=== PATIENT | male | born 1930 | race Caucasian/White ===

== ENCOUNTER 2018-07-20 03:10 | Inpatient (IN) | payer MEDICARE ==
[2018-07-20] MEDS: SOD CHLORIDE 0.9% 1,000 ML IV (03:40)
[2018-07-20] MEDS: FAMOTIDINE 20 MG INJ IV (03:40)
[2018-07-20 03:44] LABS: ADD MAN DIFF? NO
[2018-07-20 04:03] LABS: ALANINE AMINOTRANSFERASE 20 IU/L (13-69); ALBUMIN 3.8 g/dl (3.3-4.9); ALBUMIN/GLOBULIN RATIO 0.97; ALKALINE PHOSPHATASE 91 IU/L (42-121); ANION GAP 15 (8-16); ASPARTATE AMINO TRANSFERASE 23 IU/L (15-46); BILIRUBIN,INDIRECT 0.2 mg/dl (0-1.1); BILIRUBIN,TOTAL 0.2 mg/dl (0.2-1.3); BLOOD UREA NITROGEN 29 mg/dl (7-20); CALCIUM 8.9 mg/dl (8.4-10.2); CARBON DIOXIDE 24 mmol/L (21-31); CHLORIDE 107 mmol/L (97-110); CREATININE 0.75 mg/dl (0.61-1.24); GLUCOSE 143 mg/dl (70-220); POTASSIUM 4.7 mmol/L (3.5-5.1); SODIUM 141 mmol/L (135-144); TOTAL PROTEIN 7.7 g/dl (6.1-8.1)
[2018-07-20 04:05] LABS: BASOPHILS % 0.3 % (0.0-2.0); EOSINOPHILS # 0.4 10^3/ul (0.0-0.5); EOSINOPHILS % 3.4 % (0.0-7.0); HEMATOCRIT 35.6 % (42.0-52.0); HEMOGLOBIN 11.3 g/dl (14.0-18.0); LYMPHOCYTES # 0.7 10^3/ul (0.8-2.9); MEAN CORPUSCULAR HEMOGLOBIN 26.5 pg (29.0-33.0); MEAN CORPUSCULAR HGB CONC 31.7 g/dl (32.0-37.0); MEAN CORPUSCULAR VOLUME 83.4 fl (82.0-101.0); MEAN PLATELET VOLUME 9.4 fl (7.4-10.4); MONOCYTE # 1.2 10^3/ul (0.3-0.9); NEUTROPHIL # 9.5 10^3/ul (1.6-7.5); NEUTROPHILS % 79.8 % (39.0-77.0); PLATELET COUNT 227 10^3/UL (140-415); RED BLOOD COUNT 4.27 10^6/ul (4.70-6.10); RED CELL DISTRIBUTION WIDTH 15.2 % (11.5-14.5)
[2018-07-20 04:05] LABS: WHITE BLOOD COUNT 11.9 10^3/ul (4.8-10.8)
[2018-07-20 04:11] LABS: INR 0.96; PROTIME 12.9 Sec (11.9-14.9)
[2018-07-20 04:12] LABS: PARTIAL THROMBOPLASTIN TIME 33.9 Sec (25.0-35.0)
[2018-07-20 04:15] LABS: TROPONIN-I < 0.012 ng/ml (0.000-0.120)
[2018-07-20] MEDS ORDERED: ONDANSETRON 4 MG INJ IV ×3 (09:00→21:00)
[2018-07-20] MEDS ORDERED: ACETAMINOPHEN 325 MG TAB PO (09:00)
[2018-07-20] MEDS: ALBUTEROL/IPRATROPIUM (NEB) 3 ML AMP HHN ×2 (14:00→19:53)
[2018-07-20 20:40] LABS: OCCULT BLOOD STOOL NEGATIVE (NEGATIVE)
[2018-07-20] MEDS ORDERED: GLUCOSE GEL 15 GRAM TUBE PO ×2 (21:30)
[2018-07-20] MEDS ORDERED: DEXTROSE 50% 50 ML SYRINGE IV ×2 (21:30)
[2018-07-20] MEDS ORDERED: GLUCAGON 1 MG INJ IM (21:30)
[2018-07-20] MEDS ORDERED: GLUCOSE GEL 15 GRAM TUBE BUCCAL (21:30)
[2018-07-20] MEDS ORDERED: INSULIN ASPART [NOVOLOG] 3 ML PEN SC (22:30)
[2018-07-20] MEDS: PANTOPRAZOLE 40 MG INJ IV (22:45)
[2018-07-20] MEDS: D5W-0.45 NACL + KCL 20 MEQ 1,000 ML IV (22:46)
[2018-07-21] MEDS ORDERED: INSULIN ASPART [NOVOLOG] 3 ML PEN SC
[2018-07-21] MEDS: ALBUTEROL/IPRATROPIUM (NEB) 3 ML AMP HHN ×4 (00:37→19:53)
[2018-07-21] MEDS: D5W-0.45 NACL + KCL 20 MEQ 1,000 ML IV ×4 (05:00→21:00)
[2018-07-21] MEDS ORDERED: PANTOPRAZOLE 40 MG INJ IV (06:00)
[2018-07-21] MEDS: PANTOPRAZOLE 40 MG INJ IV ×2 (06:00→18:57)
[2018-07-21] MEDS: Insulin NOVOLOG SS MILD Algorithm (NPO/TPN/ENTERAL FEEDS) SC ×4 (06:00→18:00)
[2018-07-21 06:55] LABS: ADD MAN DIFF? NO
[2018-07-21 07:06] LABS: BASOPHILS % 0.6 % (0.0-2.0); EOSINOPHILS # 0.3 10^3/ul (0.0-0.5); EOSINOPHILS % 5.4 % (0.0-7.0); HEMOGLOBIN 7.6 g/dl (14.0-18.0); LYMPHOCYTES # 0.8 10^3/ul (0.8-2.9); LYMPHOCYTES % 16.5 % (15.0-51.0); MEAN CORPUSCULAR HEMOGLOBIN 26.2 pg (29.0-33.0); MEAN CORPUSCULAR HGB CONC 30.4 g/dl (32.0-37.0); MEAN CORPUSCULAR VOLUME 86.2 fl (82.0-101.0); MEAN PLATELET VOLUME 9.5 fl (7.4-10.4); MONOCYTE # 0.5 10^3/ul (0.3-0.9); MONOCYTES % 10.3 % (0.0-11.0); NEUTROPHIL # 3.4 10^3/ul (1.6-7.5); NEUTROPHILS % 66.6 % (39.0-77.0); PLATELET COUNT 167 10^3/UL (140-415); RED CELL DISTRIBUTION WIDTH 15.9 % (11.5-14.5)
[2018-07-21 09:53] LABS: ALANINE AMINOTRANSFERASE 18 IU/L (13-69); ALBUMIN 3.6 g/dl (3.3-4.9); ALBUMIN/GLOBULIN RATIO 0.97; ALKALINE PHOSPHATASE 81 IU/L (42-121); ANION GAP 12 (8-16); ASPARTATE AMINO TRANSFERASE 19 IU/L (15-46); BILIRUBIN,INDIRECT 0.2 mg/dl (0-1.1); BILIRUBIN,TOTAL 0.2 mg/dl (0.2-1.3); BLOOD UREA NITROGEN 15 mg/dl (7-20); CALCIUM 8.5 mg/dl (8.4-10.2); CARBON DIOXIDE 26 mmol/L (21-31); CHLORIDE 107 mmol/L (97-110); CREATININE 0.71 mg/dl (0.61-1.24); GLUCOSE 126 mg/dl (70-220); MAGNESIUM 1.4 mg/dl (1.7-2.5); POTASSIUM 4.2 mmol/L (3.5-5.1); SODIUM 141 mmol/L (135-144); TOTAL PROTEIN 7.3 g/dl (6.1-8.1)
[2018-07-21] MEDS: PROPOFOL 20 ML (11:34)
[2018-07-21 16:19] LABS: IMMEDIATE SPIN CROSSMATCH 1 2
[2018-07-21 20:25] LABS: HEMATOCRIT 35.5 % (42.0-52.0); HEMOGLOBIN 11.6 g/dl (14.0-18.0)
[2018-07-21] MEDS: MAGNESIUM SULFATE 2 GM/50 ML 50 ML IVPB (20:53)
[2018-07-22] MEDS: ACETAMINOPHEN 1000MG/100ML IV 100 ML IVPB (00:10)
[2018-07-22] MEDS: D5W-0.45 NACL + KCL 20 MEQ 1,000 ML IV ×4 (01:58→21:32)
[2018-07-22] MEDS: ALBUTEROL/IPRATROPIUM (NEB) 3 ML AMP HHN ×4 (02:18→19:42)
[2018-07-22] MEDS: Insulin NOVOLOG SS MILD Algorithm (NPO/TPN/ENTERAL FEEDS) SC ×4 (05:17→18:00)
[2018-07-22] MEDS: PANTOPRAZOLE 40 MG INJ IV ×2 (05:17→18:34)
[2018-07-22 06:03] LABS: ADD MAN DIFF? NO
[2018-07-22 06:09] LABS: WHITE BLOOD COUNT 6.7 10^3/ul (4.8-10.8)
[2018-07-22 06:09] LABS: BASOPHILS % 0.6 % (0.0-2.0); EOSINOPHILS # 0.3 10^3/ul (0.0-0.5); EOSINOPHILS % 4.8 % (0.0-7.0); HEMATOCRIT 36.4 % (42.0-52.0); HEMOGLOBIN 11.8 g/dl (14.0-18.0); LYMPHOCYTES % 14.3 % (15.0-51.0); MEAN CORPUSCULAR HEMOGLOBIN 26.8 pg (29.0-33.0); MEAN CORPUSCULAR HGB CONC 32.4 g/dl (32.0-37.0); MEAN CORPUSCULAR VOLUME 82.5 fl (82.0-101.0); MEAN PLATELET VOLUME 9.2 fl (7.4-10.4); MONOCYTE # 0.8 10^3/ul (0.3-0.9); MONOCYTES % 11.6 % (0.0-11.0); NEUTROPHIL # 4.5 10^3/ul (1.6-7.5); NEUTROPHILS % 67.7 % (39.0-77.0); PLATELET COUNT 200 10^3/UL (140-415); RED BLOOD COUNT 4.41 10^6/ul (4.70-6.10); RED CELL DISTRIBUTION WIDTH 14.9 % (11.5-14.5); RETICULOCYTE COUNT # 0.061 X10^6 (0.020-0.110); RETICULOCYTE COUNT % 1.4 % (0.5-1.5); RETICULOCYTE RBC 4.41
[2018-07-22 06:42] LABS: MAGNESIUM 1.6 mg/dl (1.7-2.5)
[2018-07-22 06:50] LABS: ANION GAP 14 (8-16); BLOOD UREA NITROGEN 10 mg/dl (7-20); CALCIUM 8.1 mg/dl (8.4-10.2); CARBON DIOXIDE 25 mmol/L (21-31); CHLORIDE 108 mmol/L (97-110); CREATININE 0.59 mg/dl (0.61-1.24); GLUCOSE 138 mg/dl (70-220); POTASSIUM 3.6 mmol/L (3.5-5.1); SODIUM 143 mmol/L (135-144)
[2018-07-22] MEDS: hydrALAzine 20 MG INJ IV ×2 (08:21→19:55)
[2018-07-22 12:09] LABS: HEMOGLOBIN 12.7 g/dl (14.0-18.0)
[2018-07-22] MEDS: METOCLOPRAMIDE 10 MG INJ IV ×2 (14:25→23:30)
[2018-07-22] MEDS: ACETAMINOPHEN 325 MG TAB PO (21:32)
[2018-07-23] MEDS: ALBUTEROL/IPRATROPIUM (NEB) 3 ML AMP HHN ×4 (01:30→19:33)
[2018-07-23] MEDS: D5W-0.45 NACL + KCL 20 MEQ 1,000 ML IV ×4 (05:00→17:30)
[2018-07-23] MEDS: PANTOPRAZOLE 40 MG INJ IV ×2 (05:28→17:30)
[2018-07-23 05:48] LABS: ADD MAN DIFF? NO
[2018-07-23 05:50] LABS: BASOPHIL # 0.1 10^3/ul (0.0-0.1); BASOPHILS % 0.7 % (0.0-2.0); EOSINOPHILS # 0.4 10^3/ul (0.0-0.5); EOSINOPHILS % 5.3 % (0.0-7.0); HEMATOCRIT 38.2 % (42.0-52.0); HEMOGLOBIN 12.4 g/dl (14.0-18.0); LYMPHOCYTES % 13.6 % (15.0-51.0); MEAN CORPUSCULAR HEMOGLOBIN 27.2 pg (29.0-33.0); MEAN CORPUSCULAR HGB CONC 32.5 g/dl (32.0-37.0); MEAN CORPUSCULAR VOLUME 83.8 fl (82.0-101.0); MEAN PLATELET VOLUME 9.1 fl (7.4-10.4); MONOCYTE # 0.9 10^3/ul (0.3-0.9); MONOCYTES % 11.9 % (0.0-11.0); NEUTROPHIL # 5.1 10^3/ul (1.6-7.5); NEUTROPHILS % 66.8 % (39.0-77.0); PLATELET COUNT 215 10^3/UL (140-415); RED BLOOD COUNT 4.56 10^6/ul (4.70-6.10); RED CELL DISTRIBUTION WIDTH 14.8 % (11.5-14.5)
[2018-07-23 05:50] LABS: WHITE BLOOD COUNT 7.6 10^3/ul (4.8-10.8)
[2018-07-23] MEDS: METOCLOPRAMIDE 10 MG INJ IV ×2 (08:35→21:24)
[2018-07-24] MEDS: ALBUTEROL/IPRATROPIUM (NEB) 3 ML AMP HHN ×5 (02:00→21:19)
[2018-07-24] MEDS: PANTOPRAZOLE 40 MG INJ IV ×2 (05:20→18:04)
[2018-07-24] MEDS: D5W-0.45 NACL + KCL 20 MEQ 1,000 ML IV ×2 (05:21→12:51)
[2018-07-24] MEDS: METOCLOPRAMIDE 10 MG INJ IV ×2 (08:28→20:37)
[2018-07-24] MEDS: TOBRAMYCIN/DEXAMETH 2.5 ML OPH BOTH EYES (20:37)
[2018-07-25] MEDS: ALBUTEROL/IPRATROPIUM (NEB) 3 ML AMP HHN ×4 (01:06→19:45)
[2018-07-25] MEDS: D5W-0.45 NACL + KCL 20 MEQ 1,000 ML IV (03:42)
[2018-07-25 05:58] LABS: ADD MAN DIFF? NO
[2018-07-25] MEDS: PANTOPRAZOLE 40 MG INJ IV ×2 (06:05→18:21)
[2018-07-25 06:08] LABS: BASOPHIL # 0.1 10^3/ul (0.0-0.1); BASOPHILS % 0.9 % (0.0-2.0); EOSINOPHILS # 0.5 10^3/ul (0.0-0.5); EOSINOPHILS % 7.2 % (0.0-7.0); HEMATOCRIT 36.8 % (42.0-52.0); HEMOGLOBIN 11.7 g/dl (14.0-18.0); LYMPHOCYTES % 14.1 % (15.0-51.0); MEAN CORPUSCULAR HEMOGLOBIN 26.8 pg (29.0-33.0); MEAN CORPUSCULAR HGB CONC 31.8 g/dl (32.0-37.0); MEAN CORPUSCULAR VOLUME 84.4 fl (82.0-101.0); MEAN PLATELET VOLUME 9.3 fl (7.4-10.4); MONOCYTE # 0.7 10^3/ul (0.3-0.9); MONOCYTES % 10.7 % (0.0-11.0); NEUTROPHIL # 4.5 10^3/ul (1.6-7.5); NEUTROPHILS % 65.6 % (39.0-77.0); PLATELET COUNT 233 10^3/UL (140-415); RED BLOOD COUNT 4.36 10^6/ul (4.70-6.10); RED CELL DISTRIBUTION WIDTH 14.6 % (11.5-14.5)
[2018-07-25 06:08] LABS: WHITE BLOOD COUNT 6.8 10^3/ul (4.8-10.8)
[2018-07-25 07:18] LABS: ANION GAP 11 (8-16); BLOOD UREA NITROGEN 12 mg/dl (7-20); CALCIUM 8.3 mg/dl (8.4-10.2); CARBON DIOXIDE 25 mmol/L (21-31); CHLORIDE 108 mmol/L (97-110); CREATININE 0.73 mg/dl (0.61-1.24); GLUCOSE 123 mg/dl (70-220); POTASSIUM 4.3 mmol/L (3.5-5.1); SODIUM 140 mmol/L (135-144)
[2018-07-25] MEDS: METOCLOPRAMIDE 10 MG INJ IV ×2 (09:11→20:14)
[2018-07-25] MEDS: TOBRAMYCIN/DEXAMETH 2.5 ML OPH BOTH EYES ×2 (09:15→20:14)
[2018-07-25] MEDS: MAGNESIUM SULFATE 3 GM in DEXTROSE 5% 100 ML IVPB (16:00)
[2018-07-25] MEDS: LISINOPRIL 20 MG TAB PO (17:00)
[2018-07-25] MEDS: AMLODIPINE 10 MG TAB PO (17:00)
[2018-07-26] MEDS: ALBUTEROL/IPRATROPIUM (NEB) 3 ML AMP HHN ×4 (01:08→19:45)
[2018-07-26 05:30] LABS: ANION GAP 11 (8-16); BLOOD UREA NITROGEN 13 mg/dl (7-20); CALCIUM 8.7 mg/dl (8.4-10.2); CARBON DIOXIDE 28 mmol/L (21-31); CHLORIDE 106 mmol/L (97-110); CREATININE 0.72 mg/dl (0.61-1.24); GLUCOSE 104 mg/dl (70-220); MAGNESIUM 2.1 mg/dl (1.7-2.5); POTASSIUM 4.5 mmol/L (3.5-5.1); SODIUM 140 mmol/L (135-144)
[2018-07-26] MEDS: PANTOPRAZOLE 40 MG INJ IV ×2 (06:47→17:55)
[2018-07-26] MEDS: AMLODIPINE 10 MG TAB PO (08:54)
[2018-07-26] MEDS: TOBRAMYCIN/DEXAMETH 2.5 ML OPH BOTH EYES ×2 (08:55→21:42)
[2018-07-26] MEDS: LISINOPRIL 20 MG TAB PO (08:55)
[2018-07-26] MEDS: METOCLOPRAMIDE 10 MG INJ IV ×2 (08:55→21:42)
[2018-07-27] MEDS: ALBUTEROL/IPRATROPIUM (NEB) 3 ML AMP HHN ×5 (01:11→21:55)
[2018-07-27] MEDS: PANTOPRAZOLE 40 MG INJ IV ×2 (06:03→17:00)
[2018-07-27] MEDS: METOCLOPRAMIDE 10 MG INJ IV ×2 (08:51→21:04)
[2018-07-27] MEDS: AMLODIPINE 10 MG TAB PO (08:51)
[2018-07-27] MEDS: LISINOPRIL 20 MG TAB PO (08:51)
[2018-07-27] MEDS: TOBRAMYCIN/DEXAMETH 2.5 ML OPH BOTH EYES ×2 (10:29→21:05)
[2018-07-27] MEDS: OCULAR LUBRICANT 3.5 GM OPH OINT BOTH EYES ×2 (14:19→21:05)
[2018-07-27] MEDS: PREDNISOLONE ACET 1% 5 ML OPH BOTH EYES ×2 (16:58→21:06)
[2018-07-28] MEDS: ALBUTEROL/IPRATROPIUM (NEB) 3 ML AMP HHN ×4 (02:00→19:47)
[2018-07-28] MEDS: PANTOPRAZOLE 40 MG INJ IV ×2 (05:20→17:35)
[2018-07-28] MEDS: OCULAR LUBRICANT 3.5 GM OPH OINT BOTH EYES ×2 (05:21→13:28)
[2018-07-28] MEDS: TOBRAMYCIN/DEXAMETH 2.5 ML OPH BOTH EYES ×2 (05:21→13:28)
[2018-07-28 07:44] LABS: ADD MAN DIFF? NO
[2018-07-28 07:53] LABS: WHITE BLOOD COUNT 7.1 10^3/ul (4.8-10.8)
[2018-07-28 07:53] LABS: BASOPHIL # 0.1 10^3/ul (0.0-0.1); BASOPHILS % 1.3 % (0.0-2.0); EOSINOPHILS # 0.6 10^3/ul (0.0-0.5); EOSINOPHILS % 7.8 % (0.0-7.0); HEMATOCRIT 38.8 % (42.0-52.0); HEMOGLOBIN 12.3 g/dl (14.0-18.0); LYMPHOCYTES # 1.3 10^3/ul (0.8-2.9); LYMPHOCYTES % 18.6 % (15.0-51.0); MEAN CORPUSCULAR HEMOGLOBIN 26.9 pg (29.0-33.0); MEAN CORPUSCULAR HGB CONC 31.7 g/dl (32.0-37.0); MEAN CORPUSCULAR VOLUME 84.9 fl (82.0-101.0); MEAN PLATELET VOLUME 9.1 fl (7.4-10.4); MONOCYTE # 0.6 10^3/ul (0.3-0.9); MONOCYTES % 8.1 % (0.0-11.0); NEUTROPHIL # 4.5 10^3/ul (1.6-7.5); NEUTROPHILS % 63.4 % (39.0-77.0); PLATELET COUNT 244 10^3/UL (140-415); POSITIVE DIFF @See below; RED BLOOD COUNT 4.57 10^6/ul (4.70-6.10); RED CELL DISTRIBUTION WIDTH 14.3 % (11.5-14.5)
[2018-07-28 08:16] LABS: ANION GAP 13 (8-16); BLOOD UREA NITROGEN 19 mg/dl (7-20); CALCIUM 8.7 mg/dl (8.4-10.2); CARBON DIOXIDE 27 mmol/L (21-31); CHLORIDE 104 mmol/L (97-110); CREATININE 0.73 mg/dl (0.61-1.24); GLUCOSE 103 mg/dl (70-220); POTASSIUM 4.3 mmol/L (3.5-5.1); SODIUM 140 mmol/L (135-144)
[2018-07-28] MEDS: METOCLOPRAMIDE 10 MG INJ IV (09:06)
[2018-07-28] MEDS: LISINOPRIL 20 MG TAB PO (09:09)
[2018-07-28] MEDS: AMLODIPINE 10 MG TAB PO (09:09)
[2018-07-28] MEDS: PREDNISOLONE ACET 1% 5 ML OPH BOTH EYES ×3 (09:10→17:37)
[2018-07-28 10:14] LABS: BAND NEUTROPHILS #M 0.5 10^3/ul (0.0-0.6); BAND NEUTROPHILS % (M) 8 % (0-4); BASOPHILS % (M) 1 % (0-2); EOSINOPHILS % (M) 7 % (0-7); LYMPHOCYTES #M 0.9 10^3/ul (0.8-2.9); LYMPHOCYTES % (M) 14 % (15-51); METAMYELOCYTES %M 1 % (0-0); MONOCYTE #M 0.6 10^3/ul (0.3-0.9); MONOCYTES % (M) 9 % (0-11); MYELOCYTES % (M) 1 % (0-0); PLATELET ESTIMATE NORMAL; REACTIVE LYMPHOCYTES #M 0.2 10^3/ul (0.0-0.0); REACTIVE LYMPHOCYTES% (M) 3 % (0-0); SEGMENTED NEUTROPHILS (M) % 56 % (39-77); SMUDGE%M 7 % (0-0)
[2018-07-28] MEDS: METOCLOPRAMIDE 10 MG TAB PO (13:28)
== END 2018-07-28 20:00 | DRG 378 ==
LOC: E/R 03:10 → 2NE 05:29
PROC: 0DJ08ZZ Inspection of Upper Intestinal Tract, Via Natural or Artificial Opening Endoscopic (ICD-10-PCS; principal; 2018-07-21 12:20)
PROC: 30233N1 Transfusion of Nonautologous Red Blood Cells into Peripheral Vein, Percutaneous Approach (ICD-10-PCS; 2018-07-21 12:20)
DX: K29.01 Acute gastritis with bleeding (principal); I69.351 Hemiplegia and hemiparesis following cerebral infarction affecting right dominant side; J98.11 Atelectasis; K59.39 Other megacolon; K21.9 Gastro-esophageal reflux disease without esophagitis; E83.42 Hypomagnesemia; E11.9 Type 2 diabetes mellitus without complications; N40.0 Benign prostatic hyperplasia without lower urinary tract symptoms; R14.0 Abdominal distension (gaseous); H02.135 Senile ectropion of left lower eyelid
CPT/HCPCS: 36415; 36430; 71045; 74018; 74019; 80048; 80053; 82270; 82962; 83735; 84484; 85014; 85018; 85025; 85045; 85610; 85730; 86850; 86900; 86901; 86920; 87081; 93005; 94640; 94664; 96374; 99285-25; G0378